=== PATIENT | female | born 1980 | race American Indian/Alaskan Native ===

== ENCOUNTER 2018-10-30 18:17 | Emergency (ER) | payer OTHER ==
[2018-10-30] MEDS ORDERED: ZOFRAN IV ONE (18:39)
[2018-10-30] MEDS ORDERED: NACL 0.9% 1000 ML 1,000 ML IV ONE (18:39)
[2018-10-30 19:03] LABS: Basophils % (Auto) 0.5 % (0.0-1.8); Eosinophils % (Auto) 0.5 % (0.0-4.3); Hematocrit 40.8 % (30.3-42.9); Hemoglobin 13.5 gm/dl (10.1-14.3); Lymphocytes # (Auto) 3.2 K/mm3 (1.2-5.4); Mean Corpuscular HGB Conc 33 % (30-34); Mean Corpuscular Volume 90 fl (79-97); Monocytes # (Auto) 0.4 K/mm3 (0.0-0.8); Monocytes % (Auto) 4.8 % (0.0-7.3); Platelet Count 277 K/mm3 (140-440); Red Blood Count 4.56 M/mm3 (3.65-5.03); Red Cell Distribution Width 17.3 % (13.2-15.2)
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
[2018-10-30] MEDS ORDERED: MAGNESIUM SULFATE 2GM/50ML 2 GM/50 ML BAG IV ONE (19:22)
[2018-10-30] MEDS ORDERED: VITAMIN B-1 100 MG, FOLVITE 1 MG, INFUVITE 10 ML in NACL 0.9% 1000 ML 1,000 ML IV ONE (19:22)
[2018-10-30 20:31] LABS: Creatine Kinase MB < 1.0 ng/mL (0.0-4.0)
[2018-10-30 20:32] LABS: Alanine Aminotransferase 15 units/L (7-56); Albumin 3.8 g/dL (3.9-5); BUN/Creatinine Ratio 12; Blood Urea Nitrogen 7 mg/dL (7-17); Calcium 9.3 mg/dL (8.4-10.2); Hemolysis Index 6
[2018-10-30] MEDS ORDERED: K-DUR PO ONE (20:59)
--- NOTE | 2018-10-30 21:09 | Cat Scan Report ---
CT head without contrast INDICATION : syncope. Acute altered mental status today, alcohol use TECHNIQUE: Axial imaging performed from the skull apex through the skull base without the use of con trast. All CT scans at this location are performed using CT dose reduction for ALARA by means of aut omated exposure control. COMPARISON: None FINDINGS: Parenchyma: No acute intracranial hemorrhage or parenchymal abnormality. Ventricles: Ventricles are normal in size and appear symmetric. Soft tissues: Soft tissues including the orbits appear normal. Bones: No acute osseous abnormality. Sinuses: Sinuses and mastoid air cells are clear. IMPRESSION: No acute abnormality. Signer Name: David Baxter MD Signed: 10/30/2018 9:04 PM Workstation Name: [id number]
--- NOTE | 2018-10-30 21:09 | Cat Scan Report ---
CT cervical spine without contrast INDICATION: fall after syncopal episode, EtOH. TECHNIQUE: Axial imaging performed through the cervical spine without the use of contrast. Sagittal and coronal reconstructed images were also reviewed. All CT scans at this location are performed us ing CT dose reduction for ALARA by means of automated exposure control. COMPARISON: None FINDINGS: Alignment: Spinal alignment is normal. Bones: There is no acute osseous abnormality. Mild multilevel discogenic DJD is present. Soft tissues: No acute or significant incidental soft tissue abnormality. IMPRESSION: No acute abnormality. Signer Name: David Baxter MD Signed: 10/30/2018 9:05 PM Workstation Name: [id number]
--- NOTE | 2018-10-31 07:27 | Emergency Department Report ---
Blank Doc - Documentation Documentation: This is a 38 year old female who was apparently uncooperative and intoxicated w ith an alcohol level of 0.25 yesterday at about 6:45 PM. At this time my encounter she is coherent. She is cooperative. She does not need another alcohol level due to the injectable metabolism rate. She is fully ambulatory. She has no HI or SI. She admits to homelessness. She would like to go to a custodial. Examination reveals a patient in no distress. Neurological exam no gross focal deficits. Assessment Alcohol intoxication Homelessness Plan Hopefully the nurses can assist this patient with transportation to a custodial. 2013 is canceled as she does not meet criteria.
[2018-10-31 08:57] VITALS: BP 135/90
== END 2018-10-31 09:00 | disposition home or self-care (01) ==
LOC: ED 18:17
DX: F10.929 Alcohol use, unspecified with intoxication, unspecified (principal); I10 Essential (primary) hypertension; F17.200 Nicotine dependence, unspecified, uncomplicated; Z91.040 Latex allergy status; Z88.0 Allergy status to penicillin; Z91.013 Allergy to seafood; Z91.010 Allergy to peanuts
CPT/HCPCS: 36415; 70450; 72125; 80053; 82550; 82553; 84484; 84703; 85025; 93005; 93010; G0480; J2405; J3411; J7030; 80320; 96361; 96365; 96366; 96375

== ENCOUNTER 2018-12-12 19:05 | Observation (INO) | payer OTHER ==
--- NOTE | 2018-12-12 19:50 | Event Note ---
ED Screening Note Date of service: 12/12/18 Time: 19:47 ED Screening Note: 38 y/o female comes in for SOB and chest pressure and bilateral lower leg swelling and bilateral romeo swelling. Currently going through Detox for ETOH. This initial assessment/diagnostic orders/clinical plan/treatment(s) is/are subject to change based on patients health status, clinical progression and re- assessment by fellow clinical providers in the ED. Further treatment and workup at subsequent clinical providers discretion. Patient/guardian urged not to elope from the ED as their condition may be serious if not clinically assessed and managed. Initial orders include:
[2018-12-12 20:23] LABS: Basophils # (Auto) 0.1 K/mm3 (0.0-0.1); Eosinophils # (Auto) 0.2 K/mm3 (0.0-0.4); Eosinophils % (Auto) 2.3 % (0.0-4.3); Hematocrit 35.1 % (30.3-42.9); Hemoglobin 11.8 gm/dl (10.1-14.3); Lymphocytes # (Auto) 2.6 K/mm3 (1.2-5.4); Lymphocytes % (Auto) 25.1 % (13.4-35.0); Mean Corpuscular HGB Conc 34 % (30-34); Mean Corpuscular Volume 89 fl (79-97); Monocytes % (Auto) 10.1 % (0.0-7.3); Platelet Count 294 K/mm3 (140-440); Red Blood Count 3.93 M/mm3 (3.65-5.03); Red Cell Distribution Width 16.7 % (13.2-15.2)
[2018-12-12 20:40] LABS: Alanine Aminotransferase 6 units/L (7-56); Albumin 3.4 g/dL (3.9-5); BUN/Creatinine Ratio 15; Blood Urea Nitrogen 9 mg/dL (7-17); Calcium 9.1 mg/dL (8.4-10.2); Hemolysis Index 8
--- NOTE | 2018-12-13 00:27 | XRay Report ---
CHEST 2 VIEWS INDICATION / CLINICAL INFORMATION: Shortness of breath and chest pressure for 2 days. COMPARISON: None available. FINDINGS: SUPPORT DEVICES: None. HEART / MEDIASTINUM: The heart size and pulmonary vasculature are normal. The aorta is normal in tyrone ayse. LUNGS / PLEURA: No significant pulmonary or pleural abnormality. No pneumothorax. ADDITIONAL FINDINGS: No significant additional findings. IMPRESSION: No acute findings. Signer Name: Christopher Ortiz MD Signed: 12/13/2018 12:23 AM Workstation Name: [id number]
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
--- NOTE | 2018-12-13 03:01 | Cat Scan Report ---
CT angiography of the chest with intravenous contrast and multiplanar MIPS reconstructions INDICATION / CLINICAL INFORMATION: CHEST PAIN, BILATERAL FOOT SWELLING.. TECHNIQUE: Axial CT images were obtained after injection of 100 cc Omnipaque 350 IV contrast using CTA protocol. 3 plane MIP / 3D reconstructions were produced. All CT scans at this location are performed using CT dose reduction for ALARA by means of automated exposure control. COMPARISON: None available. FINDINGS: There is good opacification of the pulmonary arterial system bilaterally without intraluminal filling defect to suggest acute PTE. The thoracic aorta is normal in caliber without dissection. No coronary artery calcification is seen. The tracheobronchial tree is normal. The lung parenchyma is clear. There is no evidence of adenopathy or effusion. The visualized upper abdomen is normal. No osseous abnormality is seen. IMPRESSION: No evidence of acute PTE or other significant abnormality. Signer Name: Christopher Ortiz MD Signed: 12/13/2018 2:56 AM Workstation Name: [id number]
[2018-12-13 03:44] LABS: Bilirubin,Urine NEG (Negative); Blood,Urine NEG (Negative); Color,Urine Colorless (Yellow); HCG Qualitative,Urine Negative (Negative); Protein,Urine <15 mg/dL mg/dL (Negative); Urobilinogen,Urine < 2.0 mg/dL (<2.0)
[2018-12-13] MEDS ORDERED: SODIUM CHLORIDE FLUSH SYRINGE 10 ML IV PRN (06:14)
[2018-12-13] MEDS ORDERED: MORPHINE IV PRN (06:14)
[2018-12-13] MEDS ORDERED: ZOFRAN IV PRN (06:14)
[2018-12-13] MEDS ORDERED: PERCOCET 5/325 PO PRN (06:14)
[2018-12-13] MEDS ORDERED: TYLENOL PO PRN (06:14)
[2018-12-13] MEDS ORDERED: K-DUR PO ONE (06:17)
--- NOTE | 2018-12-13 06:29 | History and Physical Report ---
History of Present Illness Date of examination: 12/13/18 Chief complaint: Bilateral feet swelling History of present illness: Patient is a 38-year-old -F[place] female with history of DM2 and LT LE DVT who presented to the ED on account of 2 days history of bilateral feet swelling. She has associated left calf pain, shortness of breath on mild exertion, chest heaviness and lightheadedness. She denies palpitation, diaphoresis, cough, fever, chills, orthopnea or PND. No headaches, nausea, vomiting, syncope or loss of consciousness. Patient stated that she was diagnosed with left lower extremity DVT in 01/2018, however she did not continue oral anticoagulation after she was discharged from the hospital because of unaffordability since she was homeless at that time. She is currently in an inpatient rehabilitation facility for alcohol and mental disorder. Past History Past Medical History: diabetes, hypertension, other (bipolar disorder, anxiety and depression, morbid obesity) Past Surgical History: , Other (left knee surgery) Social history: smoking (she has 20 years history of cigarette smoking. She currently smokes 2 packs per day. She denies illicit drug use), alcohol abuse (patient is an alcoholic of 23 years, she is currently on inpatient treatment and has been clean for 26 days) Family history: other (mother and aunt have history of DVT) Medications and Allergies Allergies Allergy/AdvReac Type Severity Reaction Status Date / Time latex Allergy Hives Verified 10/30/18 18:49 peanut Allergy Hives Verified 10/30/18 18:49 Penicillins Allergy Hives Verified 10/30/18 18:49 sea food Allergy Rash Uncoded 10/30/18 18:49 Home Medications Medication Instructions Recorded Confirmed Last Taken Type ARIPiprazole [Abilify TAB] 1 tab PO DAILY 12/13/18 12/13/[address] [Steven Linares] 2 tab PO DAILY 12/13/18 12/13/18 Unknown History Gabapentin [Neurontin] 300 mg PO Q8HR 12/13/18 12/13/18 Unknown History Ibuprofen [Motrin 800 MG tab] 1 tab PO Q8HR 12/13/18 12/13/18 Unknown History amLODIPine [Norvasc] 1 tab PO DAILY 12/13/18 12/13/18 Unknown History hydroCHLOROthiazide [HCTZ] 1 tab PO DAILY 12/13/18 12/13/18 Unknown History metFORMIN [Glucophage] 2 tab PO DAILY 12/13/18 12/13/18 Unknown History Active Meds: Active Medications Acetaminophen (Tylenol) 650 mg PO Q4H PRN PRN Reason: Pain MILD(1-3)/Fever >100.5/REDDY Enoxaparin Sodium (Lovenox) 40 mg SUB-Q QDAY GINNY Morphine Sulfate (Morphine) 4 mg IV Q4H PRN PRN Reason: Pain , Severe (7-10) Ondansetron HCl (Zofran) 4 mg IV Q8H PRN PRN Reason: Nausea And Vomiting Oxycodone/Acetaminophen (Percocet 5/325) 1 tab PO Q6H PRN PRN Reason: Pain, Moderate (4-6) Potassium Chloride (K-Dur) 40 meq PO ONCE ONE Stop: 12/13/18 06:18 Sodium Chloride (Sodium Chloride Flush Syringe 10 Ml) 10 ml IV BID GINNY Sodium Chloride (Sodium Chloride Flush Syringe 10 Ml) 10 ml IV PRN PRN PRN Reason: LINE FLUSH Review of Systems All systems: negative (all other systems reviewed with the patient and are negative unless otherwise stated) Exam - Constitutional Vitals: Temp Pulse Resp BP Pulse Ox 97.7 F 49 L 15 114/77 98 12/13/18 01:42 12/13/18 06:01 12/13/18 06:01 12/13/18 06:01 12/13/18 06:01 General appearance: Present: no acute distress, obese - EENT Eyes: Present: PERRL, EOM intact ENT: hearing intact, clear oral mucosa - Neck Neck: Present: supple, normal ROM - Respiratory Respiratory effort: normal Respiratory: bilateral: CTA - Cardiovascular Rhythm: regular (with bradycardia) Heart Sounds: Present: S1 & S2. Absent: rub, click - Extremities Extremity abnormal: edema (in BLE) Peripheral Pulses: within normal limits - Abdominal General gastrointestinal: Present: soft, non-tender, non-distended, normal bowel sounds Female genitourinary: Present: deferred - Integumentary Integumentary: Present: clear, warm, dry - Musculoskeletal Musculoskeletal: gait normal, strength equal bilaterally - Psychiatric Psychiatric: appropriate mood/affect, intact judgment & insight - Neurologic Neurologic: CNII-XII intact, moves all extremities Results - Labs CBC & Chem 7: 12/12/18 20:03 12/12/18 20:03 Labs: Laboratory Last Values WBC 10.3 K/mm3 (4.5-11.0) 12/12/18 20:03 RBC 3.93 M/mm3 (3.65-5.03) 12/12/18 20:03 Hgb 11.8 gm/dl (10.1-14.3) 12/12/18 20:03 Hct 35.1 % (30.3-42.9) 12/12/18 20:03 MCV 89 fl (79-97) 12/12/18 20:03 MCH 30 pg (28-32) 12/12/18 20:03 MCHC 34 % (30-34) 12/12/18 20:03 RDW 16.7 % (13.2-15.2) H 12/12/18 20:03 Plt Count 294 K/mm3 (140-440) 12/12/18 20:03 Lymph % (Auto) 25.1 % (13.4-35.0) 12/12/18 20:03 [place] % (Auto) 10.1 % (0.0-7.3) H 12/12/18 20:03 Eos % (Auto) 2.3 % (0.0-4.3) 12/12/18 20:03 Baso % (Auto) 1.0 % (0.0-1.8) 12/12/18 20:03 Lymph # 2.6 K/mm3 (1.2-5.4) 12/12/18 20:03 [place] # 1.0 K/mm3 (0.0-0.8) H 12/12/18 20:03 Eos # 0.2 K/mm3 (0.0-0.4) 12/12/18 20:03 Baso # 0.1 K/mm3 (0.0-0.1) 12/12/18 20:03 Seg Neutrophils % 61.5 % (40.0-70.0) 12/12/18 20:03 Seg Neutrophils # 6.3 K/mm3 (1.8-7.7) 12/12/18 20:03 Sodium 137 mmol/L (137-145) 12/12/18 20:03 Potassium 3.5 mmol/L (3.6-5.0) L 12/12/18 20:03 Chloride 99.2 mmol/L (98-107) 12/12/18 20:03 Carbon Dioxide 26 mmol/L (22-30) 12/12/18 20:03 15 mmol/L 12/12/18 20:03 BUN 9 mg/dL (7-17) 12/12/18 20:03 0.6 mg/dL (0.7-1.2) L 12/12/18 20:03 Estimated GFR > 60 ml/min 12/12/18 20:03 15 % 12/12/18 20:03 Glucose 100 mg/dL (65-100) 12/12/18 20:03 Calcium 9.1 mg/dL (8.4-10.2) 12/12/18 20:03 < 0.20 mg/dL (0.1-1.2) 12/12/18 20:03 AST 8 units/L (5-40) 12/12/18 20:03 ALT 6 units/L (7-56) L 12/12/18 20:03 47 units/L (35-129) 12/12/18 20:03 64 units/L (30-135) 12/13/18 01:45 < 0.010 ng/mL (0.00-0.029) 12/13/18 01:45 NT-Pro-B Natriuret Pep 257.8 pg/mL (0-450) 12/13/18 01:45 6.6 g/dL (6.3-8.2) 12/12/18 20:03 3.4 g/dL (3.9-5) L 12/12/18 20:03 1.1 % 12/12/18 20:03 Colorless (Yellow) 12/13/18 03:26 Clear (Clear) 12/13/18 03:26 6.0 (5.0-7.0) 12/13/18 03:26 Ur Specific [place] 1.032 (1.003-1.030) H 12/13/18 03:26 <15 mg/dl mg/dL (Negative) 12/13/18 03:26 Neg mg/dL (Negative) 12/13/18 03:26 Neg mg/dL (Negative) 12/13/18 03:26 Neg (Negative) 12/13/18 03:26 Neg (Negative) 12/13/18 03:26 Neg (Negative) 12/13/18 03:26 < 2.0 mg/dL (<2.0) 12/13/18 03:26 Ur Leukocyte Esterase Neg (Negative) 12/13/18 03:26 1.0 /HPF (0.0-6.0) 12/13/18 03:26 1.0 /HPF (0.0-6.0) 12/13/18 03:26 U Epithel Cells (Auto) < 1.0 /HPF (0-13.0) 12/13/18 03:26 Urine HCG, Qual Negative (Negative) 12/13/18 03:26 Assessment and Plan Assessment and plan: Bilateral lower extremity edema -Venous duplex ultrasound to assess for DVT pending -Echocardiogram to assess EF and valvular function pending Chest heaviness -Serial troponin level and EKG monitoring -CTA chest negative for acute PE Sinus bradycardia -Thyroid function test pending Mild hypokalemia -We'll replete and monitor k level -Will check magnesium level DM2 -Stable, on SSI Hypertension -Stable Psychiatric disorder (Bipolar, anxiety and depression) -Stable, resume home medications when available Morbid obesity with BMI of 43.2 -Lifestyle modification recommended Tobacco abuse -Cessation recommended -On nicotine patch DVT prophylaxis with Lovenox Disposition: Patient will be placed in observation status pending further evaluation and treatment Time spent: 38 minutes
[2018-12-13] MEDS ORDERED: ASPIRIN PO ONE (06:41)
[2018-12-13] MEDS ORDERED: D50W (25GM) Syringe IV PRN (06:43)
--- NOTE | 2018-12-13 08:57 | Vascular Lab Report ---
. DUPLEX DOPPLER LOWER EXTREMITY VEINS, BILATERAL INDICATION: Bilateral lower extremity edema for 2 days. TECHNIQUE: Duplex doppler imaging was performed through the veins of both lower extremities using ve nous compression and other maneuvers. COMPARISON: No relevant prior imaging study available. FINDINGS: Right Common femoral vein: Negative. Right Superficial femoral vein: Negative. Right Popliteal vein: Negative. Right Calf veins: Negative. Left Common femoral vein: Negative. Left Superficial femoral vein: Negative. Left Popliteal vein: Negative. Left Calf veins: Negative. Additional findings: None.. IMPRESSION: No sonographic evidence for DVT in either lower extremity. Signer Name: Antonio Jon Jr, MD Signed: 12/13/2018 8:53 AM Workstation Name: [id number]
--- NOTE | 2018-12-13 12:18 | Event Note ---
Date: 12/13/18 Patient was admitted this morning with bilateral lower extremity swelling Asymptomatic bradycardia, mild hypothyroidism Patient seen and examined medical records reviewed Workup is in progress, continue current management Consult cardiology for asymptomatic bradycardia if no improvement Monitor closely and adjust management if needed
[2018-12-13] MEDS: HABITROL TD SCH (13:01)
[2018-12-13] MEDS: LOVENOX SUB-Q SCH (13:01)
[2018-12-13] MEDS: GLUCOPHAGE PO SCH (13:02)
[2018-12-13] MEDS: SODIUM CHLORIDE FLUSH SYRINGE 10 ML IV SCH ×2 (13:08→21:51)
[2018-12-13] MEDS: HCTZ PO SCH (13:12)
[2018-12-13] MEDS: HumaLOG SUB-Q SCH ×3 (13:12→21:48)
[2018-12-14 05:54] LABS: BUN/Creatinine Ratio 22; Blood Urea Nitrogen 11 mg/dL (7-17); Calcium 8.4 mg/dL (8.4-10.2); Chol/HDL Ratio 4.61 %; HDL Cholesterol 31 mg/dL (40-59); Hemolysis Index 3; LDL Cholesterol,Direct 108 mg/dL (50-130)
[2018-12-14] MEDS ORDERED: SYNTHROID PO SCH (06:00)
[2018-12-14] MEDS: HumaLOG SUB-Q SCH (08:18)
[2018-12-14] MEDS: GLUCOPHAGE PO SCH (08:24)
[2018-12-14] MEDS: HABITROL TD SCH (09:39)
[2018-12-14] MEDS: HCTZ PO SCH (09:40)
[2018-12-14] MEDS: LOVENOX SUB-Q SCH (09:40)
[2018-12-14 12:20] VITALS: BP 111/64
--- NOTE | 2018-12-14 15:17 | Discharge Summary ---
Providers - Providers Date of Admission: 12/13/18 06:14 Date of discharge: 12/14/18 Attending physician: HERIBERTO CATALAN [facility] Condition: Stable Hospital course: Discharge diagnosis: Bilateral lower extremity edema - likely from Norvasc and hypothyroidism -Venous duplex ultrasound to assess for DVT - negative -Echocardiogram to assess EF and valvular function - preserved EF Chest heaviness -Serial troponin level and EKG monitoring -CTA chest negative for acute PE Sinus bradycardia -likely from hypothyroidism, Hypothyroid, started on synthroid, need further outpt f/u Mild hypokalemia -We'll replete and monitor k level -Will check magnesium level DM2 -Stable, on SSI Hypertension -Stable, stopped norvasc Psychiatric disorder (Bipolar, anxiety and depression) -Stable, resume home medications when available Morbid obesity with BMI of 43.2 -Lifestyle modification recommended Tobacco abuse -Cessation recommended -On nicotine patch DVT prophylaxis with Lovenox Disposition: DC-01 TO HOME OR SELFCARE Time spent for discharge: 34 minutes Core Measure Documentation - Palliative Care Palliative Care/ Comfort Measures: Not Applicable - Core Measures Any of the following diagnoses?: none Exam - Constitutional Vitals: Temp Pulse Resp BP Pulse Ox 98.0 F 54 L 14 111/64 97 12/14/18 12:17 12/14/18 12:17 12/14/18 12:17 12/14/18 12:17 12/14/18 12:17 General appearance: Present: no acute distress, obese - EENT Eyes: Present: PERRL ENT: hearing intact, clear oral mucosa - Neck Neck: Present: supple, normal ROM - Respiratory Respiratory effort: normal Respiratory: bilateral: CTA - Cardiovascular Heart Sounds: Present: S1 & S2. Absent: rub, click - Extremities Extremities: pulses symmetrical, No edema Peripheral Pulses: within normal limits - Abdominal General gastrointestinal: Present: soft, non-tender, non-distended, normal bowel sounds - Integumentary Integumentary: Present: clear, warm, dry - Musculoskeletal Musculoskeletal: gait normal, strength equal bilaterally - Psychiatric Psychiatric: appropriate mood/affect, intact judgment & insight - Neurologic Neurologic: CNII-XII intact, moves all extremities Plan Activity: advance as tolerated Weight Bearing Status: Weight Bear as Tolerated Diet: low fat, low salt Additional Instructions: Can take tylenol 650 q6h as needed for mild to moderate pain and fever/temp >100.4F Follow up with: KETURAH BETH MD [Primary Care Provider] - 3-5 Days Forms: Work/School Release Form Prescriptions: Levothyroxine [Synthroid] 50 mcg PO DAILY@0600 #30 tablet
== END 2018-12-14 18:00 | disposition home or self-care (01) ==
LOC: ED 19:05 → 3A 12-13 06:14
PROVIDERS: ADMIT Internal Medicine; ATTEND Internal Medicine
DX: R22.43 Localized swelling, mass and lump, lower limb, bilateral (principal); R07.89 Other chest pain; R00.1 Bradycardia, unspecified; E87.6 Hypokalemia; E11.9 Type 2 diabetes mellitus without complications; I10 Essential (primary) hypertension; F31.9 Bipolar disorder, unspecified; F17.210 Nicotine dependence, cigarettes, uncomplicated; E66.01 Morbid (severe) obesity due to excess calories; Z68.41 Body mass index [BMI] 40.0-44.9, adult
CPT/HCPCS: 36415; 71046; 71275; 80048; 80053; 80061; 81001; 81025; 82550; 82962; 83735; 83880; 84439; 84443; 84484; 85025; 93005; 93010; 93306; 93970; 96372; 99291; 99406; G0378; J1650; Q9967

== ENCOUNTER 2019-01-12 12:28 | Emergency (ER) | payer SELFPAY ==
[2019-01-12 14:25] LABS: Basophils # (Auto) 0.1 K/mm3 (0.0-0.1); Basophils % (Auto) 0.8 % (0.0-1.8); Eosinophils # (Auto) 0.2 K/mm3 (0.0-0.4); Eosinophils % (Auto) 2.3 % (0.0-4.3); Hematocrit 40.3 % (30.3-42.9); Hemoglobin 13.1 gm/dl (10.1-14.3); Lymphocytes # (Auto) 2.7 K/mm3 (1.2-5.4); Lymphocytes % (Auto) 36.2 % (13.4-35.0); Mean Corpuscular HGB Conc 33 % (30-34); Mean Corpuscular Volume 89 fl (79-97); Monocytes # (Auto) 0.7 K/mm3 (0.0-0.8); Monocytes % (Auto) 9.1 % (0.0-7.3); Platelet Count 232 K/mm3 (140-440); Red Blood Count 4.51 M/mm3 (3.65-5.03); Red Cell Distribution Width 15.7 % (13.2-15.2)
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
[2019-01-12] MEDS ORDERED: NACL 0.9% 1000 ML 1,000 ML IV ONE (14:47)
[2019-01-12 14:53] LABS: Albumin 3.7 g/dL (3.9-5); BUN/Creatinine Ratio 12; Blood Urea Nitrogen 6 mg/dL (7-17); Hemolysis Index 11
[2019-01-12 15:05] LABS: Alanine Aminotransferase < 5 units/L (7-56)
[2019-01-12 15:28] LABS: Bilirubin,Urine NEG (Negative); Blood,Urine NEG (Negative); Color,Urine Yellow (Yellow); Protein,Urine <15 mg/dL mg/dL (Negative); Urobilinogen,Urine < 2.0 mg/dL (<2.0); WBC,Urine < 1.0 /HPF (0.0-6.0)
--- NOTE | 2019-01-12 16:07 | XRay Report ---
CHEST 2 VIEWS INDICATION / CLINICAL INFORMATION: Palpitations. COMPARISON: 12/13/2018. FINDINGS: SUPPORT DEVICES: None. HEART / MEDIASTINUM: The heart size and pulmonary vasculature are normal. The aorta is normal in tyrone ayse. LUNGS / PLEURA: No significant pulmonary or pleural abnormality. No pneumothorax. ADDITIONAL FINDINGS: No significant additional findings. IMPRESSION: No acute abnormality or significant change. Signer Name: Christopher Ortiz MD Signed: 01/12/2019 4:03 PM Workstation Name: [id number]
[2019-01-12 17:28] VITALS: BP 116/77
== END 2019-01-12 18:00 | disposition home or self-care (01) ==
LOC: ED 12:28
DX: R00.2 Palpitations (principal); R42 Dizziness and giddiness; I10 Essential (primary) hypertension; E11.9 Type 2 diabetes mellitus without complications; F31.9 Bipolar disorder, unspecified; F41.9 Anxiety disorder, unspecified; E87.6 Hypokalemia; F17.200 Nicotine dependence, unspecified, uncomplicated; Z98.890 Other specified postprocedural states; Z79.84 Long term (current) use of oral hypoglycemic drugs; Z79.899 Other long term (current) drug therapy; Z91.010 Allergy to peanuts; Z91.040 Latex allergy status; Z91.013 Allergy to seafood; Z88.0 Allergy status to penicillin
CPT/HCPCS: 36415; 71046; 80053; 81001; 84443; 84484; 84703; 85025; 85379; 93005; 93010; 96360; 96361; 99285; J7030

== ENCOUNTER 2019-02-06 17:07 | Emergency (ER) | payer SELFPAY ==
[2019-02-06 17:11] VITALS: BP 141/82
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
== END 2019-02-06 17:42 | disposition left against medical advice (07) ==
LOC: ED 17:07
DX: F10.10 Alcohol abuse, uncomplicated (principal); I10 Essential (primary) hypertension; E11.9 Type 2 diabetes mellitus without complications; F31.9 Bipolar disorder, unspecified; F41.9 Anxiety disorder, unspecified; F17.200 Nicotine dependence, unspecified, uncomplicated; Z91.040 Latex allergy status; Z91.010 Allergy to peanuts; Z88.0 Allergy status to penicillin; Z91.013 Allergy to seafood; Z79.84 Long term (current) use of oral hypoglycemic drugs
CPT/HCPCS: 99282

== ENCOUNTER 2019-02-06 18:20 | Emergency (ER) | payer SELFPAY ==
[2019-02-06 20:44] LABS: Basophils # (Auto) 0.1 K/mm3 (0.0-0.1); Basophils % (Auto) 0.8 % (0.0-1.8); Eosinophils # (Auto) 0.1 K/mm3 (0.0-0.4); Eosinophils % (Auto) 1.1 % (0.0-4.3); Hematocrit 40.6 % (30.3-42.9); Hemoglobin 13.3 gm/dl (10.1-14.3); Lymphocytes # (Auto) 2.6 K/mm3 (1.2-5.4); Lymphocytes % (Auto) 33.8 % (13.4-35.0); Mean Corpuscular HGB Conc 33 % (30-34); Mean Corpuscular Volume 90 fl (79-97); Monocytes # (Auto) 0.5 K/mm3 (0.0-0.8); Monocytes % (Auto) 6.5 % (0.0-7.3); Platelet Count 227 K/mm3 (140-440); Red Blood Count 4.51 M/mm3 (3.65-5.03); Red Cell Distribution Width 15.6 % (13.2-15.2)
[2019-02-06 20:49] LABS: BUN/Creatinine Ratio 13; Blood Urea Nitrogen 8 mg/dL (7-17); Calcium 8.8 mg/dL (8.4-10.2); Hemolysis Index 5
[2019-02-06] MEDS ORDERED: K-DUR PO ONE (21:08)
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
[2019-02-06 22:33] LABS: Bacteria,Urine 2+ /HPF (Negative); Bilirubin,Urine NEG (Negative); Blood,Urine NEG (Negative); Color,Urine Straw (Yellow); Protein,Urine <15 mg/dL mg/dL (Negative); Urobilinogen,Urine < 2.0 mg/dL (<2.0); WBC,Urine < 1.0 /HPF (0.0-6.0)
--- NOTE | 2019-02-06 22:41 | Event Note ---
Date: 02/06/19 Patient returned to the emergency room for an evaluation. Laboratory studies reviewed and appreciated. EKG reviewed and appreciated. Physician insurance assistant has contacted the [place] [facility], and discussed the case with [place] No additional interventions are recommended at this time. The patient at this time does not appear to have an immediate medical contraindication to discharge. Patient does not appear to have an emergent medical or psychiatric condition at this time. She can follow-up as an outpatient. The patient remains clinically sober, and in no acute distress. Vital Signs 02/06/19 02/06/19 02/06/19 18:35 20:00 21:00 Temperature 98.4 F 98.4 F Pulse Rate 89 79 Respiratory 20 20 20 Rate Blood Pressure 141/82 Blood Pressure 129/72 [Left] O2 Sat by Pulse 99 99 99 Oximetry Lab Results 02/06/19 02/06/19 02/06/19 Range/Units 20:08 20:12 20:12 WBC (4.5-11.0) K/mm3 RBC (3.65-5.03) M/mm3 Hgb (10.1-14.3) gm/dl Hct (30.3-42.9) % MCV (79-97) fl MCH (28-32) pg MCHC (30-34) % RDW (13.2-15.2) % Plt Count (140-440) K/mm3 Lymph % (Auto) (13.4-35.0) % [place] % (Auto) (0.0-7.3) % Eos % (Auto) (0.0-4.3) % Baso % (Auto) (0.0-1.8) % Lymph # (1.2-5.4) K/mm3 [place] # (0.0-0.8) K/mm3 Eos # (0.0-0.4) K/mm3 Baso # (0.0-0.1) K/mm3 Seg Neutrophils % (40.0-70.0) % Seg Neutrophils # (1.8-7.7) K/mm3 Sodium (137-145) mmol/L Potassium (3.6-5.0) mmol/L Chloride (98-107) mmol/L Carbon Dioxide (22-30) mmol/L Anion Gap mmol/L BUN (7-17) mg/dL Creatinine (0.7-1.2) mg/dL Estimated GFR ml/min BUN/Creatinine Ratio % Glucose (65-100) mg/dL Calcium (8.4-10.2) mg/dL Magnesium (1.7-2.3) mg/dL HCG, Qual (Negative) Urine Color Straw (Yellow) Urine Turbidity Slightly-cloudy (Clear) Urine pH 5.0 (5.0-7.0) Ur Specific [place] 1.004 (1.003-1.030) Urine Protein <15 mg/dl (Negative) mg/dL Urine Glucose (UA) Neg (Negative) mg/dL Urine Ketones Neg (Negative) mg/dL Urine Blood Neg (Negative) Urine Nitrite Neg (Negative) Urine Bilirubin Neg (Negative) Urine Urobilinogen < 2.0 (<2.0) mg/dL Ur Leukocyte Esterase Neg (Negative) Urine WBC (Auto) < 1.0 (0.0-6.0) /HPF Urine RBC (Auto) 1.0 (0.0-6.0) /HPF U Epithel Cells (Auto) 7.0 (0-13.0) /HPF Urine Bacteria (Auto) 2+ (Negative) /HPF Salicylates < 0.3 L (2.8-20.0) mg/dL Acetaminophen < 5.0 L (10.0-30.0) ug/mL Plasma/Serum Alcohol (0-0.07) % 02/06/19 02/06/19 02/06/19 Range/Units 20:12 20:12 20:12 WBC (4.5-11.0) K/mm3 RBC (3.65-5.03) M/mm3 Hgb (10.1-14.3) gm/dl Hct (30.3-42.9) % MCV (79-97) fl MCH (28-32) pg MCHC (30-34) % RDW (13.2-15.2) % Plt Count (140-440) K/mm3 Lymph % (Auto) (13.4-35.0) % [place] % (Auto) (0.0-7.3) % Eos % (Auto) (0.0-4.3) % Baso % (Auto) (0.0-1.8) % Lymph # (1.2-5.4) K/mm3 [place] # (0.0-0.8) K/mm3 Eos # (0.0-0.4) K/mm3 Baso # (0.0-0.1) K/mm3 Seg Neutrophils % (40.0-70.0) % Seg Neutrophils # (1.8-7.7) K/mm3 Sodium 138 (137-145) mmol/L Potassium 3.2 L (3.6-5.0) mmol/L Chloride 97.5 L (98-107) mmol/L Carbon Dioxide 22 (22-30) mmol/L Anion Gap 22 mmol/L BUN 8 (7-17) mg/dL Creatinine 0.6 L (0.7-1.2) mg/dL Estimated GFR > 60 ml/min BUN/Creatinine Ratio 13 % Glucose 111 H (65-100) mg/dL Calcium 8.8 (8.4-10.2) mg/dL Magnesium (1.7-2.3) mg/dL HCG, Qual Negative (Negative) Urine Color (Yellow) Urine Turbidity (Clear) Urine pH (5.0-7.0) Ur Specific [place] (1.003-1.030) Urine Protein (Negative) mg/dL Urine Glucose (UA) (Negative) mg/dL Urine Ketones (Negative) mg/dL Urine Blood (Negative) Urine Nitrite (Negative) Urine Bilirubin (Negative) Urine Urobilinogen (<2.0) mg/dL Ur Leukocyte Esterase (Negative) Urine WBC (Auto) (0.0-6.0) /HPF Urine RBC (Auto) (0.0-6.0) /HPF U Epithel Cells (Auto) (0-13.0) /HPF Urine Bacteria (Auto) (Negative) /HPF Salicylates (2.8-20.0) mg/dL Acetaminophen (10.0-30.0) ug/mL Plasma/Serum Alcohol 0.09 H (0-0.07) % 02/06/19 02/06/19 Range/Units 20:12 20:12 WBC 7.8 (4.5-11.0) K/mm3 RBC 4.51 (3.65-5.03) M/mm3 Hgb 13.3 (10.1-14.3) gm/dl Hct 40.6 (30.3-42.9) % MCV 90 (79-97) fl MCH 30 (28-32) pg MCHC 33 (30-34) % RDW 15.6 H (13.2-15.2) % Plt Count 227 (140-440) K/mm3 Lymph % (Auto) 33.8 (13.4-35.0) % [place] % (Auto) 6.5 (0.0-7.3) % Eos % (Auto) 1.1 (0.0-4.3) % Baso % (Auto) 0.8 (0.0-1.8) % Lymph # 2.6 (1.2-5.4) K/mm3 [place] # 0.5 (0.0-0.8) K/mm3 Eos # 0.1 (0.0-0.4) K/mm3 Baso # 0.1 (0.0-0.1) K/mm3 Seg Neutrophils % 57.8 (40.0-70.0) % Seg Neutrophils # 4.5 (1.8-7.7) K/mm3 Sodium (137-145) mmol/L Potassium (3.6-5.0) mmol/L Chloride (98-107) mmol/L Carbon Dioxide (22-30) mmol/L Anion Gap mmol/L BUN (7-17) mg/dL Creatinine (0.7-1.2) mg/dL Estimated GFR ml/min BUN/Creatinine Ratio % Glucose (65-100) mg/dL Calcium (8.4-10.2) mg/dL Magnesium 1.80 (1.7-2.3) mg/dL HCG, Qual (Negative) Urine Color (Yellow) Urine Turbidity (Clear) Urine pH (5.0-7.0) Ur Specific [place] (1.003-1.030) Urine Protein (Negative) mg/dL Urine Glucose (UA) (Negative) mg/dL Urine Ketones (Negative) mg/dL Urine Blood (Negative) Urine Nitrite (Negative) Urine Bilirubin (Negative) Urine Urobilinogen (<2.0) mg/dL Ur Leukocyte Esterase (Negative) Urine WBC (Auto) (0.0-6.0) /HPF Urine RBC (Auto) (0.0-6.0) /HPF U Epithel Cells (Auto) (0-13.0) /HPF Urine Bacteria (Auto) (Negative) /HPF Salicylates (2.8-20.0) mg/dL Acetaminophen (10.0-30.0) ug/mL Plasma/Serum Alcohol (0-0.07) %
[2019-02-06 23:18] LABS: Amphetamine Screen,Urine PRESUMPTIVE NEGATIVE; Benzodiazepines Screen,Urine PRESUMPTIVE NEGATIVE; Cannabinoid Screen,Urine PRESUMPTIVE NEGATIVE; Cocaine Screen,Urine PRESUMPTIVE NEGATIVE; Methadone Screen,Urine PRESUMPTIVE NEGATIVE; Opiate Screen,Urine PRESUMPTIVE NEGATIVE
[2019-02-06 23:27] VITALS: BP 128/72
== END 2019-02-06 23:28 | disposition home or self-care (01) ==
LOC: ED 18:20
DX: F10.129 Alcohol abuse with intoxication, unspecified (principal); F41.9 Anxiety disorder, unspecified; I10 Essential (primary) hypertension; E11.9 Type 2 diabetes mellitus without complications; F31.9 Bipolar disorder, unspecified; E87.6 Hypokalemia; F17.200 Nicotine dependence, unspecified, uncomplicated; Z98.890 Other specified postprocedural states; Z79.899 Other long term (current) drug therapy; Z91.040 Latex allergy status; Z88.0 Allergy status to penicillin; Z91.010 Allergy to peanuts; Z91.013 Allergy to seafood
CPT/HCPCS: 36415; 80048; 80307; 80320; 81001; 83735; 84703; 85025; 93005; 93010; G0480

== ENCOUNTER 2019-02-22 19:28 | Emergency (ER) | payer SELFPAY ==
[2019-02-22] MEDS ORDERED: ONDANSETRON 4 MG ODT TAB PO ONE (21:08)
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
[2019-02-22 22:04] LABS: Amphetamine Screen,Urine PRESUMPTIVE NEGATIVE; Benzodiazepines Screen,Urine PRESUMPTIVE NEGATIVE; Cannabinoid Screen,Urine PRESUMPTIVE NEGATIVE; Cocaine Screen,Urine PRESUMPTIVE NEGATIVE; Methadone Screen,Urine PRESUMPTIVE NEGATIVE; Opiate Screen,Urine PRESUMPTIVE NEGATIVE
[2019-02-22 22:06] LABS: Bilirubin,Urine NEG (Negative); Blood,Urine LG (Negative); Color,Urine Yellow (Yellow); Protein,Urine <15 mg/dL mg/dL (Negative); Urobilinogen,Urine < 2.0 mg/dL (<2.0)
[2019-02-22 22:16] LABS: Basophils % (Auto) 0.4 % (0.0-1.8); Eosinophils # (Auto) 0.1 K/mm3 (0.0-0.4); Eosinophils % (Auto) 0.6 % (0.0-4.3); Hematocrit 36.6 % (30.3-42.9); Lymphocytes # (Auto) 3.4 K/mm3 (1.2-5.4); Lymphocytes % (Auto) 41.5 % (13.4-35.0); Mean Corpuscular HGB Conc 33 % (30-34); Mean Corpuscular Volume 89 fl (79-97); Monocytes # (Auto) 0.5 K/mm3 (0.0-0.8); Monocytes % (Auto) 6.3 % (0.0-7.3); Platelet Count 208 K/mm3 (140-440); Red Blood Count 4.12 M/mm3 (3.65-5.03); Red Cell Distribution Width 15.4 % (13.2-15.2)
[2019-02-22] MEDS ORDERED: THIAMINE 100 MG, FOLIC ACID 1 MG, MULTIPLE VITAMIN/VIT K 10 ML in SODIUM CHLORIDE 0.9% ... IV ONE (22:25)
[2019-02-22] MEDS ORDERED: LORazepam 2 MG TAB PO PRN ×2 (22:25)
[2019-02-22 22:27] LABS: BUN/Creatinine Ratio 10; Blood Urea Nitrogen 7 mg/dL (7-17); Hemolysis Index 76
[2019-02-22 22:41] LABS: Free T4 (Free Thyroxine) 1.12 ng/dL (0.76-1.46)
[2019-02-23] MEDS: LEVOTHYROXINE 50 MCG TAB PO SCH (06:08)
[2019-02-23] MEDS: hydrOXYzine PAMOATE 25 MG CAP PO SCH ×3 (07:30→23:08)
[2019-02-23] MEDS: metFORMIN 500 MG TAB PO SCH ×2 (07:30→17:25)
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
[2019-02-23] MEDS ORDERED: QUEtiapine 25 MG TAB PO SCH (10:00)
[2019-02-23] MEDS: hydroCHLOROthiazide 25 MG TAB PO SCH (10:35)
[2019-02-23] MEDS: DIVALPROEX DR 500 MG TAB PO SCH ×2 (10:35→23:08)
[2019-02-23] MEDS: ARIPiprazole 10 MG TAB PO SCH (10:35)
[2019-02-23 10:54] LABS: Chol/HDL Ratio 3.37 %
[2019-02-23] MEDS: NICOTINE 21 MG/24 HR PATCH TD SCH (11:01)
[2019-02-23] MEDS ORDERED: ACETAMINOPHEN 500 MG TAB ONE (15:26)
[2019-02-23] MEDS ORDERED: ACETAMINOPHEN 500 MG TAB PO ONE (15:34)
[2019-02-24] MEDS: LEVOTHYROXINE 50 MCG TAB PO SCH (07:00)
[2019-02-24] MEDS: metFORMIN 500 MG TAB PO SCH ×2 (08:45→18:00)
[2019-02-24] MEDS: hydrOXYzine PAMOATE 25 MG CAP PO SCH ×3 (08:45→20:22)
--- NOTE | 2019-02-24 09:47 | Progress Note ---
Subjective - Reason for Consult Consult date: 02/24/19 Reason for consult: Psychiatry Follow-up - Chief Complaint Chief complaint: "I don't know what's wrong with me" 38-year-old female who presented to the ER for SI's. This patient is known to me. Today the patient was calm, but depressed during the assessment. She stated that she's tired of her life and the willingness to live. She stated, "I don't know why I feel this way." She endorsed SI's, but would not confirm or deny a suicide plan when asked. She denies HI's and AVH's. She stated that she isn't sleeping. Mental Status Exam - Vital signs Last Vital Signs Temp 97.7 F 02/24/19 01:00 Pulse 69 02/24/19 01:00 Resp 18 02/24/19 01:00 BP 132/66 02/24/19 01:00 Pulse Ox 99 02/24/19 01:00 - Exam Narrative exam: MSE: Appearance: calm, cooperative Behavior: regular eye contact Speech: regular rate and tone Mood: "depressed" Affect: flat Thought Process: circumstantial Thought Content: denies HI's and AVH's Motor Activity: sitting up in bed Cognition: A/O x3 Insight: variable Judgment: poor Assessment and Plan Impression: Unspecified Mood DO. Unspecified Anxiety DO. The patient was calm during the assessment. DDx: Bipolar DO, MDD, SCAD Recommendation/Plan: Continue 1013, Depakote 500 mg PO BID for mood, Abilify 10 mg PO daily for mood, Vistaril 25 mg PO TID for anxiety, and start Melatonin 5 mg PO HS for sleep. Discussed possible metabolic side effects of Abilify with the patient, she verbalized understanding. Line of sight ordered for safety. Dispo: The patient was referred to inpatient psy services Will staff with Dr Harish Kelley.
[2019-02-24] MEDS: NICOTINE 21 MG/24 HR PATCH TD SCH (10:00)
[2019-02-24] MEDS: ARIPiprazole 10 MG TAB PO SCH (10:00)
[2019-02-24] MEDS: DIVALPROEX DR 500 MG TAB PO SCH ×2 (10:00→21:33)
[2019-02-24] MEDS: hydroCHLOROthiazide 25 MG TAB PO SCH (10:00)
[2019-02-24 11:17] LABS: Alanine Aminotransferase 9 units/L (7-56)
[2019-02-24] MEDS: MELATONIN 5 MG TAB PO SCH (21:30)
[2019-02-25] MEDS: LEVOTHYROXINE 50 MCG TAB PO SCH (06:30)
--- NOTE | 2019-02-25 08:29 | Progress Note ---
Subjective - Reason for Consult Consult date: 02/25/19 Reason for consult: Psychiatry Follow-up - Chief Complaint Chief complaint: "I have to get help" 38-year-old female who presented to the ER for SI's. This patient is known to me. Today the patient was calm, but still depressed during the assessment. She was informed of her pending transfer to inpatient psy services, she stated, "I need the help." She continue to endorse SI's. She denies HI's and AVH's. She denies any side effects from her medication. Mental Status Exam - Vital signs Last Vital Signs Temp 97.9 F 02/25/19 07:00 Pulse 49 L 02/25/19 07:00 Resp 18 02/25/19 07:00 BP 124/79 02/25/19 07:00 Pulse Ox 99 02/25/19 07:00 - Exam Narrative exam: MSE: Appearance: calm, cooperative Behavior: regular eye contact Speech: regular rate and tone Mood: "depressed" guarded Affect: flat Thought Process: circumstantial Thought Content: denies HI's and AVH's Motor Activity: sitting up in bed Cognition: A/O x3 Insight: variable Judgment: poor Assessment and Plan Impression: Unspecified Mood DO. Unspecified Anxiety DO. The patient was calm during the assessment. DDx: Bipolar DO, MDD, SCAD Recommendation/Plan: Continue 1013, Depakote 500 mg PO BID for mood, Abilify 10 mg PO daily for mood, Vistaril 25 mg PO TID for anxiety, and Melatonin 5 mg PO HS for sleep. Discussed possible metabolic side effects of Abilify with the patient, she verbalized understanding. Line of sight ordered for safety. Dispo: The patient was accepted at [facility] for inpatient psy services. Staffed with Dr Harish Kelley.
[2019-02-25] MEDS: hydrOXYzine PAMOATE 25 MG CAP PO SCH ×3 (09:00→22:29)
[2019-02-25] MEDS: metFORMIN 500 MG TAB PO SCH ×2 (09:00→18:38)
[2019-02-25] MEDS: DIVALPROEX DR 500 MG TAB PO SCH ×2 (11:00→22:29)
[2019-02-25] MEDS: hydroCHLOROthiazide 25 MG TAB PO SCH (11:00)
[2019-02-25] MEDS: NICOTINE 21 MG/24 HR PATCH TD SCH (11:00)
[2019-02-25] MEDS: ARIPiprazole 10 MG TAB PO SCH (11:00)
[2019-02-25 20:00] VITALS: BP 127/87
[2019-02-25] MEDS: MELATONIN 5 MG TAB PO SCH (22:29)
== END 2019-02-26 00:37 ==
LOC: ED 19:28 → EEVIPCON 19:28 → ED 02-26 00:37
DX: F10.10 Alcohol abuse, uncomplicated (principal); F25.0 Schizoaffective disorder, bipolar type; F41.9 Anxiety disorder, unspecified; R45.851 Suicidal ideations; E11.9 Type 2 diabetes mellitus without complications; I10 Essential (primary) hypertension; F32.9 Major depressive disorder, single episode, unspecified; E87.6 Hypokalemia; F17.200 Nicotine dependence, unspecified, uncomplicated; Z98.890 Other specified postprocedural states; Z91.14 Patient's other noncompliance with medication regimen; Z79.899 Other long term (current) drug therapy; Z91.040 Latex allergy status; Z91.010 Allergy to peanuts; Z88.0 Allergy status to penicillin; Z91.013 Allergy to seafood
CPT/HCPCS: 36415; 80048; 80061; 80164; 80307; 81001; 82150; 82962; 83036; 83690; 84075; 84439; 84443; 84450; 84460; 84703; 85025; 96365; 99285; J3411; J7030; 80320; G0480; Q0162; Q0177

== ENCOUNTER 2020-06-28 01:50 | Emergency (ER) | payer SELFPAY ==
--- NOTE | 2020-06-28 05:41 | Emergency Department Report ---
Blank Doc - Documentation Documentation: Patient is a 39 years old female brought to the emergency room via EMS for corey luation. Patient initially told EMS that she was sober for a while but now she relapsed and she need medical clearance so she can go to rehab. Patient when arrived to the ER told the triage nurse that she took extra dose of Metformin. Patient refused blood work. Patient refused to come to a room. I personally went into the ER lobby and talked to the patient. Patient was sleeping however she easily awoke. Patient stated that she did not take the extra pills to kill herself. She denied any suicidal or homicidal ideation. She denied visual or auditory hallucination. Patient is alert, oriented x3 no acute distress. Patient kept asking if he can give cover because she is cold. No criteria for involuntary treatment.
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
[2020-06-28] MEDS ORDERED: HALOPERIDOL LACTATE 5 MG/1 ML INJ IM PRN (07:12)
[2020-06-28] MEDS ORDERED: LORazepam 2 MG/ML VIAL IM PRN (07:12)
[2020-06-28 07:24] LABS: Hematocrit 37.8 % (30.3-42.9); Hemoglobin 12.1 gm/dl (10.1-14.3); Mean Corpuscular HGB Conc 32 % (30-34); Mean Corpuscular Volume 81 fl (79-97); Platelet Count 253 K/mm3 (140-440); Red Blood Count 4.69 M/mm3 (3.65-5.03); Red Cell Distribution Width 19.5 % (13.2-15.2)
[2020-06-28 07:27] LABS: Alanine Aminotransferase 13 units/L (7-56); Blood Urea Nitrogen 3 mg/dL (7-17); Calcium 8.7 mg/dL (8.4-10.2); Hemolysis Index 18
[2020-06-28 07:38] LABS: HCG Qualitative,Urine Negative (Negative)
[2020-06-28 07:39] LABS: BUN/Creatinine Ratio 5
[2020-06-28 07:42] LABS: Amphetamine Screen,Urine Negative; Benzodiazepines Screen,Urine Negative; Cannabinoid Screen,Urine Negative; Cocaine Screen,Urine Negative; Methadone Screen,Urine Negative; Opiate Screen,Urine Negative
--- NOTE | 2020-06-28 10:09 | Consultation ---
History of Present Illness - Reason for Consult Consult date: 06/28/20 Reason for consult: SI, OD - History of Present Psychiatric Illness Nidhi Barbosa is a 39y/o female patient who states she came to the ER for relapse on alcohol, and overdose in an attempt to end her life. The patient says she took all of her medications she had. She says "I just wanted to end my life. I relapsed." She verbalizes being depressed. She says she has a plan to take more pills. The patient says she has a history of biplar, depression. She says she's been off her medications for awhile. She denies any illicit drug use. Psychiatric History Diagnoses: Bipolar, Depression Suicidal attempts: Yes Psych admissions: Yes Medications tried: geodon, wellbutrin Substance abuse: alcohol Outpatient care: yes Medical history: None reported Family psych history: None reported Social History Marital status: Single Living arrangements: sober living Highest education: some college Legal history: Denies Employment status: Unemployed REVIEW OF SYSTEMS Constitutional: Negative for weight loss ENT: Negative for stridor Respiratory: Negative for cough or hemoptysis All other systems reviewed and are negative MENTAL STATUS EXAMINATION General Appearance and Behavior: Age appropriate, good hygiene, wearing appropriate clothes, fair eye contact, calm, cooperative Psychomotor Behavior: Psychomotor normal, quiet Mood: Depressed Affect and affective range: congruent with mood. Thought Process: Goal directed Thought Content: SI Speech: Normal rate, volume and rhythm Suicidal Ideation: Yes Homicidal Ideation: Denies Hallucinations: Denies Delusions: None elicited Impulse Control: Impaired Insight and Judgment: Limited insight and judgment Memory: Normal Attention: Normal Orientation: Alert, oriented. Assessment and Plan (1) Bipolar Disorder (2) Alcohol Dependence Treatment 1013 CIWA Start Geodon 20mg po BID Start Wellbutrin 100mg po daily Sitter: defer to primary Medical: Per primary Disposition: Recommend acute inpatient treatment Will follow. Case staffed with Dr. Kirk Medications and Allergies Allergies Allergy/AdvReac Type Severity Reaction Status Date / Time latex Allergy Hives Verified 10/30/18 18:49 peanut Allergy Hives Verified 10/30/18 18:49 Penicillins Allergy Hives Verified 10/30/18 18:49 sea food Allergy Rash Uncoded 10/30/18 18:49 Home Medications Medication Instructions Recorded Confirmed Last Taken Type ARIPiprazole [Abilify TAB] 1 tab PO DAILY 12/13/18 02/22/[address] [Depjamete Dr] 2 tab PO DAILY 12/13/18 02/22/19 Unknown History hydroCHLOROthiazide [HCTZ] 1 tab PO DAILY 12/13/18 02/22/19 Unknown History metFORMIN [Glucophage] 2 tab PO DAILY 12/13/18 02/22/19 Unknown History Levothyroxine [Synthroid] 50 mcg PO DAILY@0600 #30 tablet 12/14/18 02/22/19 Unknown Rx QUEtiapine [SEROquel] 1 tab PO DAILY 12/22/18 02/22/19 Unknown History hydrOXYzine PAMOATE [Vistaril] 25 mg PO TID 12/22/18 02/22/19 Unknown History Active Meds: Active Medications Haloperidol Lactate (Haloperidol Lactate 5 Mg/1 Ml Inj) 5 mg IM Q6HR PRN PRN Reason: Agitation Lorazepam (Lorazepam 2 Mg/Ml Vial) 2 mg IM Q4HR PRN PRN Reason: Agitation Mental Status Exam - Vital signs Last Vital Signs Temp 97.7 F 06/28/20 02:24 Pulse 66 06/28/20 10:00 Resp 16 06/28/20 10:00 BP 117/75 06/28/20 10:00 Pulse Ox 100 06/28/20 10:00 Results Result Diagrams: 06/28/20 06:53 06/28/20 06:53 Abnormal lab results 06/28/20 06/28/20 06/28/20 Range/Units 06:53 06:53 06:53 MCH 26 L (28-32) pg RDW 19.5 H (13.2-15.2) % BUN 3 L (7-17) mg/dL Glucose 105 H (65-100) mg/dL Lactic Acid (0.7-2.0) mmol/L Total Creatine Kinase (30-135) units/L Salicylates < 0.3 L (2.8-20.0) mg/dL Acetaminophen (10.0-30.0) ug/mL Valproic Acid (50-100) ug/mL Plasma/Serum Alcohol (0-0.07) % 06/28/20 06/28/20 06/28/20 Range/Units 06:53 06:53 06:53 MCH (28-32) pg RDW (13.2-15.2) % BUN (7-17) mg/dL Glucose (65-100) mg/dL Lactic Acid (0.7-2.0) mmol/L Total Creatine Kinase 173 H (30-135) units/L Salicylates (2.8-20.0) mg/dL Acetaminophen 5.0 L (10.0-30.0) ug/mL Valproic Acid (50-100) ug/mL Plasma/Serum Alcohol 0.12 H (0-0.07) % 06/28/20 06/28/20 Range/Units 06:53 08:28 MCH (28-32) pg RDW (13.2-15.2) % BUN (7-17) mg/dL Glucose (65-100) mg/dL Lactic Acid 2.10 H* (0.7-2.0) mmol/L Total Creatine Kinase (30-135) units/L Salicylates (2.8-20.0) mg/dL Acetaminophen (10.0-30.0) ug/mL Valproic Acid < 2.8 L (50-100) ug/mL Plasma/Serum Alcohol (0-0.07) % All other labs normal.
[2020-06-28] MEDS ORDERED: chlordiazePOXIDE 25 MG CAP PO PRN ×2 (10:17)
[2020-06-28] MEDS: buPROPion 100 MG TAB PO SCH (12:07)
[2020-06-28] MEDS: ZIPRASIDONE 20 MG CAP PO SCH ×2 (12:07→21:31)
[2020-06-28 13:17] LABS: Total Cells Counted 100
[2020-06-28 13:20] LABS: Hypochromasia 1+
[2020-06-28 13:21] LABS: Platelet Estimate Consistent w Auto; RBC Morphology Normal
[2020-06-29] MEDS ORDERED: THIAMINE 100 MG TAB PO SCH (10:00)
[2020-06-29] MEDS ORDERED: FOLIC ACID 1 MG TAB PO SCH (10:00)
[2020-06-29] MEDS ORDERED: MULTIVITAMINS ,THERAPEUTIC TAB PO SCH (10:00)
[2020-06-29] MEDS: buPROPion 100 MG TAB PO SCH (10:24)
[2020-06-29] MEDS: ZIPRASIDONE 20 MG CAP PO SCH ×2 (10:24→10:27)
--- NOTE | 2020-06-29 11:38 | Progress Note ---
Subjective - Reason for Consult Consult date: 06/29/20 Reason for consult: MHE Requesting physician: MIS IYER - Chief Complaint Chief complaint: PSYCH HPI Patient describes a good and stable mood, denies being depressed or excessively nervous. Patient eats and sleeps well. Patient denies panic attacks, recurrent nightmares or flashbacks. Patient denies symptoms suggestive of OCD or PTSD. Patient denies hallucinations, paranoia, thought interference and no features suggestive of hypomania or kathrine. Patiently completely denies suicidal or homicidal thoughts. REVIEW OF SYSTEMS Constitutional: Negative for weight loss ENT: Negative for stridor Respiratory: Negative for cough or hemoptysis All other systems reviewed and are negative MENTAL STATUS EXAMINATION General Appearance and Behavior: Age appropriate, good hygiene, wearing appropriate clothes, good eye contact, cooperative polite with questioning. Cooperation: Participating/engaged Psychomotor Behavior: unremarkable and within normal limits Mood: Good Affect and affective range: congruent with mood Thought Process: Fluent/Logical, Thought Content: Within reality, Speech: Normal volume, Regular rate and rhythm, Intellectual Functioning: Average Suicidal Ideation: Denies SI Homicidal Ideation: Denies HI Impulse Control: Unimpaired Insight and Judgment: Normal insight and judgment, Memory: Normal, Attention: Normal, Orientation: Alert, oriented, Diagnoses: Assessment and Plan (1) Bipolar Disorder (2) Alcohol Dependence Treatment Plan MEDICATIONS: Risks, benefits and alternatives of medications discussed with the patient, questions answered and consent obtained from patient. PSYCHOTHERAPY: Supportive psychotherapy provided MEDICAL: Per primary team DELIRIUM PRECAUTIONS: Please re-orient patient frequently, keep lights on during the day, and minimize benzodiazepines and opiates as these medications could worsen patient's confusion. CAD LIBRARIAN: DISPOSITION: Do Not Recommend acute inpatient psychiatric hospitalization at this time. Case discussed with Dr. Kirk who agrees with current disposition LEGAL STATUS: 1013 rescinded FOLLOW-UP: Will sign off Thank you for the consult. Please contact with any questions and/or concerns. Mental Status Exam - Vital signs Last Vital Signs Temp 98.0 F 06/29/20 08:52 Pulse 68 06/29/20 08:52 Resp 18 06/29/20 08:53 BP 118/67 06/29/20 08:52 Pulse Ox 98 06/29/20 08:52
[2020-06-29 12:37] VITALS: BP 142/83
== END 2020-06-29 13:19 ==
LOC: ED 01:50
DX: F10.129 Alcohol abuse with intoxication, unspecified (principal); Z76.5 Malingerer [conscious simulation]; T50.901A Poisoning by unspecified drugs, medicaments and biological substances, accidental (unintentional), initial encounter; Y92.89 Other specified places as the place of occurrence of the external cause; Z04.6 Encounter for general psychiatric examination, requested by authority; I10 Essential (primary) hypertension; F31.9 Bipolar disorder, unspecified; F17.200 Nicotine dependence, unspecified, uncomplicated; Z79.899 Other long term (current) drug therapy; Z91.040 Latex allergy status; Z91.010 Allergy to peanuts; Z88.0 Allergy status to penicillin; Z91.013 Allergy to seafood
CPT/HCPCS: 36415; 80053; 80164; 80307; 80320; 81025; 82140; 82550; 83735; 85007; 85025; 93005; G0480

== ENCOUNTER 2021-06-11 17:30 | Inpatient (IN) | payer SELFPAY ==
[2021-06-12 00:27] LABS: Basophils % (Auto) 0.7 % (0.0-1.8); Eosinophils # (Auto) 0.2 K/mm3 (0.0-0.4); Eosinophils % (Auto) 2.5 % (0.0-4.3); Hematocrit 38.1 % (30.3-42.9); Hemoglobin 12.1 gm/dl (10.1-14.3); Lymphocytes # (Auto) 2.9 K/mm3 (1.2-5.4); Lymphocytes % (Auto) 41.3 % (13.4-35.0); Mean Corpuscular HGB Conc 32 % (30-34); Mean Corpuscular Volume 85 fl (79-97); Monocytes # (Auto) 0.6 K/mm3 (0.0-0.8); Monocytes % (Auto) 8.2 % (0.0-7.3); Platelet Count 252 K/mm3 (140-440); Red Blood Count 4.49 M/mm3 (3.65-5.03); Red Cell Distribution Width 15.5 % (13.2-15.2)
[2021-06-12 00:42] LABS: INR 0.89 (0.87-1.13)
[2021-06-12 00:46] LABS: Creatine Kinase MB 1.1 ng/mL (0.0-4.0)
[2021-06-12 00:49] LABS: Blood Urea Nitrogen 7 mg/dL (7-17); Hemolysis Index 22
[2021-06-12 00:56] LABS: BUN/Creatinine Ratio 12
[2021-06-12 08:26] VITALS: BP 122/76
== END 2021-06-12 14:00 | disposition home or self-care (01) | DRG 313 ==
LOC: ED 17:30 → 4A 06-12 02:36
PROVIDERS: ADMIT Internal Medicine Geriatric Medicine; ATTEND Internal Medicine
DX: R07.89 Other chest pain (principal); E11.9 Type 2 diabetes mellitus without complications; I50.9 Heart failure, unspecified; F41.9 Anxiety disorder, unspecified; I11.0 Hypertensive heart disease with heart failure; F17.210 Nicotine dependence, cigarettes, uncomplicated; J44.9 Chronic obstructive pulmonary disease, unspecified; Z91.14 Patient's other noncompliance with medication regimen
CPT/HCPCS: 36415; 71045; 80048; 82550; 82553; 82805; 82962; 83880; 84484; 85025; 85610; 93005; 93010; 93306; 93970; G0378; C8929

== ENCOUNTER 2021-12-22 10:37 | Emergency (ER) | payer SELFPAY ==
[2021-12-22] MEDS ORDERED: predniSONE 50 MG TAB PO ONE (12:36)
[2021-12-22] MEDS ORDERED: ALBUTEROL 2.5 MG/3 ML NEBU IH ONE (12:36)
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
--- NOTE | 2021-12-22 13:06 | XRay Report ---
CHEST 2 VIEWS INDICATION / CLINICAL INFORMATION: productive cough. COMPARISON: Radiograph 06/11/2021, 01/12/2019 FINDINGS: SUPPORT DEVICES: None. HEART / MEDIASTINUM: No significant abnormality. LUNGS / PLEURA: Slight hazy opacification of the right lower lobe. No pneumothorax. ADDITIONAL FINDINGS: No significant additional findings. IMPRESSION: 1. Slight hazy opacification of the right lower lobe, concerning for pneumonia. Signer Name: Dillan Wolfe MD Signed: 12/22/2021 1:01 PM Workstation Name: [id number]
[2021-12-22 15:04] VITALS: BP 140/90
== END 2021-12-22 15:04 | disposition home or self-care (01) ==
LOC: ED 10:37
DX: J18.9 Pneumonia, unspecified organism (principal); I11.0 Hypertensive heart disease with heart failure; I50.9 Heart failure, unspecified; E11.9 Type 2 diabetes mellitus without complications; J45.909 Unspecified asthma, uncomplicated; F17.200 Nicotine dependence, unspecified, uncomplicated; Z91.040 Latex allergy status; Z91.010 Allergy to peanuts; Z88.0 Allergy status to penicillin; Z91.013 Allergy to seafood; Z79.899 Other long term (current) drug therapy
CPT/HCPCS: 71046; 94640; 99283; J7512

== ENCOUNTER 2022-01-05 10:40 | Emergency (ER) | payer SELFPAY ==
[2022-01-05 11:11] VITALS: BP 142/94
[2022-01-05] MEDS ORDERED: ALBUTEROL 2.5 MG/3 ML NEBU IH ONE (14:47)
[2022-01-05] MEDS ORDERED: IPRATROPIUM 0.02% NEBU 2.5 ML IH ONE (14:48)
[2022-01-05] MEDS ORDERED: methylPREDNISolone Sod Succinate 125 MG/2 ML INJ IM ONE (14:49)
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
--- NOTE | 2022-01-05 15:05 | XRay Report ---
CHEST 2 VIEWS INDICATION / CLINICAL INFORMATION: shortness of breath. COMPARISON: 12/22/2021 FINDINGS: SUPPORT DEVICES: None. HEART / MEDIASTINUM: No significant abnormality. LUNGS / PLEURA: No significant pulmonary or pleural abnormality. No pneumothorax. ADDITIONAL FINDINGS: No significant additional findings. IMPRESSION: 1. No acute findings. Signer Name: Gamaliel Delgadillo MD Signed: 01/05/2022 3:01 PM Workstation Name: [id number]
== END 2022-01-05 16:03 | disposition home or self-care (01) ==
LOC: ED 10:40
DX: J45.901 Unspecified asthma with (acute) exacerbation (principal); I11.0 Hypertensive heart disease with heart failure; I50.9 Heart failure, unspecified; E11.9 Type 2 diabetes mellitus without complications; F31.9 Bipolar disorder, unspecified; Z91.040 Latex allergy status; Z91.010 Allergy to peanuts; Z88.0 Allergy status to penicillin; Z91.013 Allergy to seafood; Z79.899 Other long term (current) drug therapy; F17.200 Nicotine dependence, unspecified, uncomplicated
CPT/HCPCS: 71046; 94640; 96372; 99283; J2930